=== PATIENT | female | born 2000 | race Hispanic/Latino ===

== ENCOUNTER 2025-04-24 08:50 | Day surgery (SDC) | payer BC ==
[2025-04-23 14:56] VITALS: BMI 25.1
[2025-04-24] MEDS ORDERED: Lidocaine 1% (PF) 30 ML VIAL ONE (10:09)
[2025-04-24] MEDS ORDERED: PROPOFOL 20 ML ONE ×2 (10:09→11:20)
[2025-04-24 10:13] LABS: BHCG - Serum Negative (NEGATIVE); Pregs Control Background? CLEAR/WHITE (CLR/WHITE); Pregs Control Bar Appear? YES (CONTROL BAR)
[2025-04-24] MEDS ORDERED: EPINEPHrine 1 MG/10 ML Abboject SYRINGE ONE (10:25)
[2025-04-24] MEDS ORDERED: CEFAZOLIN 2 GM VIAL ONE (11:13)
[2025-04-24] MEDS ORDERED: Lidocaine 1% PF 5 ML VIAL ONE (11:20)
[2025-04-24] MEDS ORDERED: Bupivacaine 0.25% HCL 30 ML VIAL ONE (12:00)
[2025-04-24] MEDS ORDERED: Ondansetron PF 4 MG/2 ML Vial ONE (12:27)
[2025-04-24] MEDS ORDERED: HYDROmorphone 0.5 MG/0.5 ML SYRINGE ONE (13:28)
[2025-04-24] MEDS ORDERED: fentaNYL PF 100 MCG/2 ML SYRINGE ONE (13:28)
[2025-04-24] MEDS ORDERED: HYDROcodone/Acetaminophen 5/325 mg Tablet ONE (14:56)
== END 2025-04-24 16:25 | disposition home or self-care (01) ==
LOC: SDC 08:50
PROVIDERS: ATTEND Orthopaedic Surgery
PROC: 0SBC4ZZ Excision of Right Knee Joint, Percutaneous Endoscopic Approach (ICD-10-PCS; principal; 2025-04-24)
PROC: 3E0T3BZ Introduction of Anesthetic Agent into Peripheral Nerves and Plexi, Percutaneous Approach (ICD-10-PCS; principal; 2025-04-24)
PROC: 0SPV0JZ Removal of Synthetic Substitute from Right Knee Joint, Tibial Surface, Open Approach (ICD-10-PCS; principal; 2025-04-24)
DX: M17.31 Unilateral post-traumatic osteoarthritis, right knee (principal); M23.41 Loose body in knee, right knee; S83.511A Sprain of anterior cruciate ligament of right knee, initial encounter; T84.84XA Pain due to internal orthopedic prosthetic devices, implants and grafts, initial encounter; Y83.1 Surgical operation with implant of artificial internal device as the cause of abnormal reaction of the patient, or of later complication, without mention of misadventure at the time of the procedure
CPT/HCPCS: 84703; A6223; J0165; J0665; J1100; J1171; J2704